=== PATIENT | male | born 1945 | race Caucasian/White ===

== ENCOUNTER 2017-11-28 18:40 | Emergency (ER) | payer OTHER, MEDICARE ==
[2017-11-28] MEDS ORDERED: NS 1,000 ML IV ONE (20:20)
--- NOTE | 2017-11-28 20:32 | EDPHY ---
H & P Time Seen by Provider: 11/28/17 20:31 HPI/ROS: Chief complaint. Dizziness, tingling HPI. 72-year-old male presents emergency department with tingling to all extremities. 4 days ago he was driving over in [place] and felt short of breath is felt like his body was stressed. He is having low but tingling to his extremities. Symptoms resolved when he to lower altitude. He had no symptoms, Thursday. Today he was shoveling and moving wood and doing heavy lifting work without any symptoms. Tonight however he developed some tingling to fingers and toes. No weakness to arms or legs. Tingling is to both hands and both feet. No chest discomfort of breath or abdominal pain. Episode of diarrhea today. He has had no fever or headache or change in his vision. He had a heart workup in the past year that was normal. ROS 10 systems were reviewed and negative with the exception of the elements mentioned in the history of present illness Past Medical/Surgical History: Appendectomy, tonsillectomy Social History: , nonsmoker, no alcohol Smoking Status: Never smoked Physical Exam: General Appearance: Alert well-developed male mild distress vital signs are stable Eyes: Pupils equal and round no pallor or injection. ENT, Mouth: Mucous membranes are moist. Respiratory: There are no retractions, lungs are clear to auscultation. Cardiovascular: Regular rate and rhythm. Gastrointestinal: Abdomen is soft and nontender, no masses, bowel sounds normal. Neurological: Awake and alert, sensory and motor exams grossly normal. Speech is normal. Cranial nerves are normal. There is no pronator drift. Finger-to- nose and [id number]-dw-[id number] are intact bilaterally. Skin: Warm and dry, no rashes. Musculoskeletal: Neck is supple nontender. Extremities symmetrical, full range of motion. Psychiatric: Patient is oriented X 3, there is no agitation. Constitutional: Initial Vital Signs Temperature (C) 36.6 C 11/28/17 18:44 Heart Rate 81 11/28/17 18:44 Respiratory Rate 18 11/28/17 18:44 Blood Pressure 138/91 H 11/28/17 18:44 O2 Sat (%) 95 11/28/17 18:44 O2 Delivery Mode Room Air Allergies/Adverse Reactions: Penicillins Allergy (Verified 11/28/17 18:44) Home Medications: Medication Instructions Recorded NK [No Known Home Meds] 11/28/17 Medical Decision Making - Diagnostics EKG Interpretation: EKG interpreted by me shows normal sinus rhythm normal interval and axis. QRS is normal there is no significant ST elevation or depression. There is no arrhythmia. The rate is 72 Procedures: IV normal saline, monitor ED Course/Re-evaluation: On re-evaluation patient is stable. The patient and I discussed labs and EKG findings. We discussed treatment plan including criteria for return importance of follow-up and further evaluation. He expresses understanding and agreement Differential Diagnosis: Patient has bilateral symptoms of tingling but no weakness. He has a normal neurologic exam. He has a normal workup. I have also considered acute coronary syndrome. There is no head injury or trauma to suggest intracranial bleeding and he has no headache. I considered electrolyte abnormalities as well as anxiety - Data Points Laboratory Results: Laboratory Results 11/28/17 20:20 11/28/17 20:20 11/28/17 11/28/17 11/28/17 20:23 20:20 20:20 WBC 5.98 10^3/uL 10^3/uL (3.80-9.50) RBC 4.85 10^6/uL 10^6/uL (4.40-6.38) Hgb 16.5 g/dL g/dL (13.7-17.5) Hct 44.9 % % (40.0-51.0) MCV 92.6 fL fL (81.5-99.8) MCH 34.0 pg pg (27.9-34.1) MCHC 36.7 g/dL g/dL (32.4-36.7) RDW 12.3 % % (11.5-15.2) Plt Count 177 10^3/uL 10^3/uL (150-400) MPV 9.6 fL fL (8.7-11.7) Neut % (Auto) 63.4 % % (39.3-74.2) Lymph % (Auto) 23.1 % % (15.0-45.0) Storey % (Auto) 8.4 % % (4.5-13.0) Eos % (Auto) 4.2 % % (0.6-7.6) Baso % (Auto) 0.7 % % (0.3-1.7) Nucleat RBC Rel Count 0.0 % % (0.0-0.2) Absolute Neuts (auto) 3.80 10^3/uL 10^3/uL (1.70-6.50) Absolute Lymphs (auto) 1.38 10^3/uL 10^3/uL (1.00-3.00) Absolute Monos (auto) 0.50 10^3/uL 10^3/uL (0.30-0.80) Absolute Eos (auto) 0.25 10^3/uL 10^3/uL (0.03-0.40) Absolute Basos (auto) 0.04 10^3/uL 10^3/uL (0.02-0.10) Absolute Nucleated RBC 0.00 10^3/uL 10^3/uL (0-0.01) Immature Gran % 0.2 % % (0.0-1.1) Immature Gran # 0.01 10^3/uL 10^3/uL (0.00-0.10) Sodium 140 mEq/L mEq/L (135-145) Potassium 4.0 mEq/L mEq/L (3.3-5.0) Chloride 108 mEq/L mEq/L (97-110) Carbon Dioxide 23 mEq/l mEq/l (22-31) Anion Gap 9 mEq/L mEq/L (8-16) BUN 13 mg/dL mg/dL (7-23) Creatinine 0.7 mg/dL mg/dL (0.7-1.3) Estimated GFR > 60 Glucose 88 mg/dL mg/dL (70-100) Calcium 9.5 mg/dL mg/dL (8.5-10.4) POC Troponin I 0.01 ng/mL ng/mL (0.00-0.08) Medications Given: Discontinued Medications Sodium Chloride (Ns) 1,000 mls @ 0 mls/hr IV ONCE ONE PRN Reason: Wide Open Stop: 11/28/17 20:21 Last Admin: 11/28/17 20:46 Dose: 1,000 mls Point of Care Test Results: Chemistry 11/28/17 20:23 POC Troponin I 0.01 ng/mL ng/mL (0.00-0.08) Departure - Departure Disposition: Home, Routine, Self-Care Clinical Impression: Paresthesia Condition: Good Instructions: Paresthesia (ED) Additional Instructions: Easy activity. Regular eating And drinking and get plenty of rest. Return for worsening symptoms including headache, chest discomfort or worsening trouble breathing. Also return for weakness. Re-evaluation by regular physician in the next 2-3 days. Referrals: Maura Fermin MD [Primary Care Provider] - 2-3 days without fail
--- NOTE | 2017-11-28 20:34 | CPEKG ---
Test Reason : OPEN Blood Pressure : / mmHG Vent. Rate : 072 BPM Atrial Rate : 073 BPM P-R Int : 179 ms QRS Dur : 097 ms QT Int : 369 ms P-R-T Axes : 049 021 051 degrees QTc Int : 404 ms Sinus rhythm Abnormal R-wave progression, early transition Confirmed by Guillaume Rodriguez ([id number]) on 11/28/2017 8:33:52 PM Referred By: Confirmed By:Guillaume Rodriguez
[2017-11-28 20:35] LABS: PLATELET COUNT 177 10^3/uL (150-400)
[2017-11-28 21:15] VITALS: BP 122/91
== END 2017-11-28 21:23 | disposition home or self-care (01) ==
DX: R20.2 Paresthesia of skin (principal); R42 Dizziness and giddiness
CPT/HCPCS: 84484-PO